=== PATIENT | female | born 1965 | race Caucasian/White ===

== ENCOUNTER 2021-01-15 13:02 | Emergency (ER) | payer OTHER, SELFPAY ==
[2021-01-15 13:32] VITALS: BP 126/82; PULSE 65; RESP 18; TEMP 36.6; O2SAT 99; BMI 33.0
--- NOTE | 2021-01-15 14:53 | PC.NURSE ---
called to [facility] [place] 1435, 1440 and 1445 not in wr
== END 2021-01-15 15:24 | disposition left against medical advice (07) ==
PROVIDERS: Emergency Provider Emergency Medicine; PCP Radiology Diagnostic Radiology
DX: T15.92XA Foreign body on external eye, part unspecified, left eye, initial encounter (principal); Y99.9 Unspecified external cause status
CPT/HCPCS: 99281; 99282

== ENCOUNTER → 2021-01-15 14:33 | Outpatient (BNVA) | payer OTHER, SELFPAY | PROVIDERS: PCP Radiology Diagnostic Radiology; Visit Provider Internal Medicine | DX: T15.92XA Foreign body on external eye, part unspecified, left eye, initial encounter (principal) | CPT/HCPCS: 92002; 99202 ==